=== PATIENT | female | born 1960 | race African-American/Black ===

== ENCOUNTER 2017-02-17 14:11 | Outpatient (CLI) | payer OTHER ==
--- NOTE | 2017-02-17 16:06 | History and Physical Report ---
History of Present Illness Date of examination: 02/17/17 Chief complaint: lt. breast lesion Medications and Allergies Allergies Allergy/AdvReac Type Severity Reaction Status Date / Time Iodinated Contrast Media - Allergy Rash Verified 08/10/16 10:32 IV Dye Penicillins Allergy Rash Verified 08/10/16 10:32 Home Medications Medication Instructions Recorded Confirmed Last Taken Type Dicyclomine [Bentyl] 10 mg PO QID 08/10/16 08/10/16 Unknown History Insulin Aspart Prot/Aspart 0 units SQ BID 08/10/16 08/10/16 Unknown History [Novolog Mix 70/30] Insulin Degludec [Tresiba 16 unit SQ QHS 08/10/16 08/10/16 Unknown History Flextouch U-100] Lipase/Protease/Amylase [Junito Robbins 1 each PO QDAY 08/10/16 08/10/16 Unknown History 12,000 Units] Simvastatin [Zocor TAB] 40 mg PO QHS 08/10/16 08/10/16 Unknown History traMADol [Ultram 50 MG tab] 50 mg PO Q6HR PRN #14 tablet 08/10/16 Unknown Rx
--- NOTE | 2017-02-17 16:08 | Procedure Note ---
Date of procedure: 02/17/17 Pre-op diagnosis: lt. breast lesion Post-op diagnosis: same Procedure: u/s guided bx Findings: solid tissue Anesthesia: local Surgeon: VASU SOTO Estimated blood loss: none Pathology: list (lt breast tissue) Specimen disposition: to lab Condition: stable Disposition: same day
--- NOTE | 2017-02-17 16:13 | Ultrasound Report ---
Ultrasound guided left breast biopsy, marker placement, left mammogram: Patient presents with outside disc demonstrating irregular nodule in the inferomedial left breast and ultrasound correlation. Imaging demonstrates the same ultrasound findings which appears to represent an elongated being taller than wide hypoechoic nodule. The skin was cleansed and 1% lidocaine used for local anesthesia. A 13-gauge guide was introduced through which a 14-gauge disposable Bard biopsy spring-loaded gun was utilized for sampling. Multiple samples obtained under ultrasound guidance. A marker was left in place and ultrasound guidance. The area was bandaged. A 2 view followup mammogram confirmed positioning of the clip corresponding to the nodular area of concern. It is of note that on our mammogram the suspicious area is somewhat less irregular and discrete than on the outside images. The patient was given followup instructions and discharged without complication.
== END 2017-02-17 14:12 | disposition home or self-care (01) ==
LOC: US 14:11
PROVIDERS: ATTEND Surgery
DX: N63 Unspecified lump in breast (principal)
CPT/HCPCS: 19083; 88305; G0206; 88361

== ENCOUNTER 2017-03-31 07:04 | Day surgery (SDC) | payer OTHER ==
[~2017-03-31 07:04] MED LIST: CLEOCIN 900 MG/50 mL 900 MG/50 ML BAG IV SCH
[2017-03-31] MEDS ORDERED: ZOFRAN IV PRN (07:57)
[2017-03-31] MEDS ORDERED: PEPCID PO NR (08:00)
[2017-03-31] MEDS ORDERED: VERSED IV NR (08:00)
[2017-03-31] MEDS ORDERED: NACL 0.9% 1000 ML 1,000 ML IV SCH (08:00)
[2017-03-31] MEDS ORDERED: XYLOCAINE 1% 20 mL ONE ×2 (08:09→08:37)
--- NOTE | 2017-03-31 08:11 | Anesthesia Day of Surgery ---
Anesthesia Day of Surgery - Day of Surgery Patient Examined: Yes Patient H&P Reviewed: Yes Patient is NPO: Yes
--- NOTE | 2017-03-31 08:11 | Anesthesia Consultation ---
Anesthesia Consult and Med Hx Date of service: 03/31/17 - Airway Anesthetic Teeth Evaluation: Good, Crowns ROM Head & Neck: Adequate Mental/Hyoid Distance: Adequate Mallampati Class: Class II Intubation Access Assessment: Probably Good - Pulmonary Exam CTA: Yes - Cardiac Exam Cardiac Exam: RRR - Pre-Operative Health Status ASA Pre-Surgery Classification: ASA2 Proposed Anesthetic Plan: General - Pulmonary Hx Smoking: Yes (CIGARETTES 5 CIGS PD X 18 YRS, QUIT IN 1999) Hx Asthma: No Hx Sleep Apnea: No - Cardiovascular System Hx Hypertension: No Hx Coronary Artery Disease: No - Central Nervous System Hx Seizures: No CVA: No Hx Psychiatric Problems: No - Endocrine Hx Liver Disease: Yes (WHIPPLE SURGERY, BILIARY DISEASE) Hx Non-Insulin Dependent Diabetes: No - Other Systems Hx Cancer: Yes (LEFT, DX: 01/2017) Hx Obesity: No
[2017-03-31] MEDS ORDERED: NACL P/F VIAL (10 ML) 10 ML ONE (08:37)
[2017-03-31] MEDS ORDERED: MARCAINE 0.25% INFILTRATI ONE ×2 (08:37→11:10)
[2017-03-31] MEDS ORDERED: METHYLENE BLUE ONE ×2 (08:38→10:52)
--- NOTE | 2017-03-31 08:44 | Mammography Report ---
Needle localization, left breast: The patient presents with a marker in the retroareolar region. A medial approach was utilized using grid mammography. 1% lidocaine used for local anesthesia. A 3 cm Cast needle introduced adjacent to the marker confirm with mammography. A wire was left in place with removal of the needle. Confirmation with mammography. No complication encountered.
--- NOTE | 2017-03-31 08:46 | Procedure Note ---
Date of procedure: 03/31/17 Pre-op diagnosis: breast lesion Post-op diagnosis: same Procedure: needle loc Findings: n/a Anesthesia: local Surgeon: VASU SOTO Estimated blood loss: none Pathology: none Condition: stable (surgery)
[2017-03-31] MEDS ORDERED: NACL BACTERIOSTATIC INFILTRATI ONE (08:47)
[2017-03-31] MEDS ORDERED: DILAUDID ONE (09:26)
[2017-03-31] MEDS ORDERED: DIPRIVAN 10 MG/ML IV ONE (09:26)
[2017-03-31] MEDS ORDERED: XYLOCAINE MPF 2% ONE (09:26)
[2017-03-31] MEDS ORDERED: DECADRON ONE (10:40)
[2017-03-31] MEDS ORDERED: ZOFRAN ONE (10:49)
[2017-03-31] MEDS ORDERED: ADRENALIN ONE (10:51)
[2017-03-31] MEDS ORDERED: ePHEDrine SULFATE ONE (10:51)
[2017-03-31] MEDS ORDERED: METHYLENE BLUE IV ONE (11:10)
[2017-03-31] MEDS ORDERED: NACL 0.9% IR ONE (11:10)
[2017-03-31] MEDS ORDERED: NACL P/F VIAL (10 ML) IV ONE (11:10)
[2017-03-31] MEDS ORDERED: XYLOCAINE 1% 20 mL INFILTRATI ONE (11:10)
--- NOTE | 2017-03-31 12:16 | Mammography Report ---
Operative specimen mammogram: A single tissue specimen is submitted that includes the localizing wire and the targeted clip.
--- NOTE | 2017-03-31 12:53 | Discharge Summary ---
Short Stay Discharge Plan Activity: no restrictions Diet: regular Wound: open to air, other (use ice pack off and on today; were bra for comfort AT all times) Follow up with: EUN ALMANZA MD [Primary Care Provider] - 7 Days TONJA LOZOYA MD [Staff Physician] - 7 Days Prescriptions: oxyCODONE /ACETAMINOPHEN [Percocet 5/325] 1 - 2 tab PO Q6HR PRN #40 tablet PRN Reason: Pain Promethazine [Phenergan TAB] 25 mg PO Q6HR PRN #10 tab PRN Reason: Nausea
--- NOTE | 2017-03-31 12:57 | Post Operative Note ---
Pre-op diagnosis: left breast cancer at 7:00, zone a Post-op diagnosis: same Findings: Four sentinel nodes removed-1 of the lymph nodes with micrometastases Procedure: Injection of radioisotope and blue dye left retroareolar breast Left axillary sentinel node biopsy Left partial mastectomy with needle localization Closure of wound with BioSorb low-profile clip marker with adjacent tissue transfer of 30 cm Anesthesia: GETA Surgeon: TONJA LOZOYA Estimated blood loss: minimal Pathology: list (Caroleen nodes 3; left partial mastectomy specimen) Specimen disposition: to lab Condition: stable Disposition: PACU
[2017-03-31] MEDS: DILAUDID IV PRN ×2 (13:07→13:30)
[2017-03-31 13:49] VITALS: BP 138/60
--- NOTE | 2017-03-31 15:09 | Post Anesthesia Evaluation ---
- Post Anesthesia Evaluation Patient Participated: Yes Airway Patent: Yes Stable Respiratory Function: Yes Nausea/Vomiting: No Temp > 96.8F: Yes Pain Manageable: Yes Adequeate Hydration: Yes Anesthesia Complications: No Block Receding Appropriately: Not Applicable Patient on Ventilator: No
--- NOTE | 2017-03-31 18:38 | Operative Report ---
PREOPERATIVE DIAGNOSIS: Left breast cancer at 7 o'clock zone, 0.7 cm. POSTOPERATIVE DIAGNOSIS: Left breast cancer at 7 o'clock zone, 0.7 cm. PROCEDURE: 1. Injection of radioisotope and blue dye, left retroareolar breast. 2. Left axillary sentinel node biopsy. 3. Left partial mastectomy with needle localization. 4. Closure wound with BioZorb, low profile 3 x 3 cm marker with adjacent tissue transfer of 30 cm2. TYPE OF ANESTHESIA: General. SURGEON: Suly Reno MD MILLINER HELPER: None. ESTIMATED BLOOD LOSS: Minimal. PATHOLOGY: [place] nodes x3 and left partial mastectomy specimen. CONDITION: Stable. DISPOSITION: PACU. FINDINGS: The patient was noted to have 3 sentinel nodes that were removed, one of the sentinel nodes had 2 lymph nodes in it, one of the lymph nodes had micrometastases, but the other lymph nodes were all negative. INDICATIONS: This is a 56-year-old woman who was noted to have a small left breast nodule in the medial lower quadrant. She had a core biopsy that showed this to be infiltrating cancer. The patient had opted for breast conservation surgery. DESCRIPTION OF PROCEDURE: The patient underwent needle localization by the radiologist and the guidewire was located at about 7 o'clock position, zone A-B. In the preoperative holding, the left breast tissue around the nipple areolar complex was prepped with alcohol and then the radioisotope was then injected in the subareolar tissue in the 4 quadrants and massaged into the tissue. The patient was then brought to the operating room and laid supine on the operating table. After adequate general endotracheal anesthesia was obtained, a left axillary roll was placed and the left arm was placed out on the armboard with appropriate padding. At this point, 2 mL of methylene blue mixed with 3 mL of saline was injected in the subareolar left breast in the 4 quadrants and massaged into the tissue. At this point, the left breast and axilla were prepped and draped in the usual fashion. Next, injection site counts were taken using a Neoprobe device and these were in the range of 37,000 counts were taken in the axilla and at the site of the highest count, a small incision was made. Dissection was carried down and the axillary fat pad was entered. Initially, a somewhat firm feeling and faintly blue lymph node was identified. It was isolated using the Harmonic scalpel device and sent to pathology as sentinel node. #1 Touch prep of this lymph node showed there were two lymph nodes in it with 1 containing micrometastases. Two additional sentinel nodes were identified and removed and sent to pathology and the touch prep of these were negative as the patient met the C 11 criteria with the being postmenopausal less than a 2 cm tumor in the ER positive, I chose not to do a full lymph node dissection. At this point, no further blue-stained lymph nodes are elevated counts were noted in the axilla. The axillary wound was irrigated and subcutaneous tissue was reapproximated using 3-0 Vicryl and skin was reapproximated using 4-0 Monocryl in running subcuticular fashion. Next, attention was then turned to doing her partial mastectomy as the cancer by ultrasonographic and MRI, criteria was listed about 2 cm from the nipple and the guidewire was located about 0.5 cm from the areolar edge. I chose to make a circumareolar incision as centered at 7 o'clock. The guidewire was brought into the field. Next, dissection was carried out along the path of the guidewire and the tip and the surrounding tissue was excised. It should be noted that the tumor was fairly superficial and closer to the skin ____ and the guidewire was floating in the tissue and basically had come out, but stayed on the superior aspect of the tissue. Once the specimen was removed, it was marked with sutures for orientation and specimen mammogram showed removal of that clip that was targeted. At this point, hemostasis was ascertained in the wound. The wound was irrigated. The defect was measured as 5 x 6 cm, which was 30 square cm. I chose to use a low profile BioZorb clip that was round and 3 x 3 cm. This was secured and the subcutaneous tissue was brought around the clip to secure the clip using 2-0 PDS in interrupted fashion. Once the clip was secured, the subcutaneous tissue was reapproximated using 3-0 Vicryl and the skin was reapproximated using 4-0 Monocryl in running subcuticular fashion. Both incisions were dressed with skin glue. The patient tolerated the procedure. There were no immediate complications. All counts reported as correct. JOB# [id number] SS/NTS
== END 2017-03-31 14:20 | disposition home or self-care (01) ==
LOC: OR 07:04
PROVIDERS: ATTEND Surgery
DX: C50.312 Malignant neoplasm of lower-inner quadrant of left female breast (principal); M19.90 Unspecified osteoarthritis, unspecified site; E11.9 Type 2 diabetes mellitus without complications; Z90.49 Acquired absence of other specified parts of digestive tract; Z98.890 Other specified postprocedural states
CPT/HCPCS: 19281; 19301; 38525; 38792; 76098; 78800; 82962; 88305; 88307; 88331; 88332; 88333; 88334; 88341; 88342; A9541; J1100; J1170; J2250; J2405; J2704; J7030; Q9968; J0171

== ENCOUNTER 2017-04-20 13:23 | Outpatient (CLI) | payer OTHER ==
--- NOTE | 2017-04-25 08:34 | PET Report ---
PET/CT:04/20/17 13:23:00 CLINICAL: Breast cancer staging. RADIOPHARMACEUTICAL: 15.67mCi F18-FDG. COMPARISON: MRI Breast Bilateral 03/13/17 TECHNIQUE- Following intravenous injection of F-18 FDG and an approximately 60 minute uptake period, CT and PET images from the mid skull to the upper thighs were acquired with the patient in the fasted state. No contrast was administered. The CT protocol used for this PET CT study is designed for attenuation correction and anatomic localization of PET abnormalities. This core feeder CT is not desired to produce and cannot replace, tjcey-hq-jdn-art diagnostic CT scans with specific imaging protocols for different body parts and indications. Plasma glucose at the time of this test: 134g/dl. The standardized uptake values (SUV) are normalized to patient body weight and indicate the highest activity concentration (SUV max) in a given disease site. FINDINGS: Brain--Physiologic FDG uptake in the visualized regions of the brain. Neck--Physiologic FDG uptake . Chest--Physiologic FDG uptake in mediastinal blood pool and myocardium. Lungs--No abnormal uptake. No pulmonary nodule or mass. Pleura/pericardium--No abnormal uptake. Thoracic nodes--No abnormal uptake. Hepatobiliary--an irregular hypodense left hepatic mass measures 5.3 x 4.4 cm. It has a more hypodense FDG avid center measuring 2.1 x 1.7 cm with SUV 5.3. Liver background SUV mean, as a reference for comparing FDG studies, is 3.1 . Benign pneumobilia status post choledocho-jejunostomy. Spleen--No abnormal uptake. Pancreas--No abnormal uptake. The head and proximal body are atrophic and the tail is absent. Postsurgical changes. Adrenal Glands--No abnormal uptake. Kidneys/Ureters/Bladder--No abnormal uptake. Abdominopelvic Nodes--No abnormal uptake. Bowel/Peritoneum/Mesentery--No abnormal uptake. Pelvic organs--No abnormal uptake. Bones/Soft Tissues--No abnormal uptake. No suspicious bone lesion. Other findings: Surgical clips in the left breast and a left breast seroma. No abnormal uptake in the breasts. IMPRESSION- 1. Hepatic metastasis with a single 5.3 x 4.4 cm predominantly non-FDG mass and a 2.1 x 1.7 cm FDG avid central component.2. Status post pancreatectomy with choledochojejunostomy. 3. Benign pneumobilia. 4. No evidence of pulmonary, harris or skeletal metastasis.
== END 2017-04-20 13:24 | disposition home or self-care (01) ==
LOC: PET 13:23
PROVIDERS: ATTEND Internal Medicine Hematology & Oncology
DX: C78.7 Secondary malignant neoplasm of liver and intrahepatic bile duct (principal); C50.412 Malignant neoplasm of upper-outer quadrant of left female breast; K76.89 Other specified diseases of liver; K86.89 Other specified diseases of pancreas; N64.89 Other specified disorders of breast; K83.8 Other specified diseases of biliary tract; Z90.410 Acquired total absence of pancreas; Z93.4 Other artificial openings of gastrointestinal tract status; Z98.890 Other specified postprocedural states
CPT/HCPCS: 78815; 82962; A9552

== ENCOUNTER 2017-04-25 07:02 | Day surgery (SDC) | payer OTHER ==
[~2017-04-25 07:02] MED LIST changes: -CLEOCIN 900 MG/50 mL 900 MG/50 ML BAG IV SCH; +VANCOMYCIN/NS 1 GM/250 ML 1 GM/250 ML BAG IV NR
[2017-04-25] MEDS ORDERED: DECADRON ONE (07:03)
[2017-04-25] MEDS ORDERED: ZOFRAN ONE (07:03)
[2017-04-25] MEDS ORDERED: SUBLIMAZE ONE (07:03)
[2017-04-25] MEDS ORDERED: XYLOCAINE MPF 2% ONE (07:03)
[2017-04-25] MEDS ORDERED: DIPRIVAN 10 MG/ML IV ONE (07:04)
[2017-04-25] MEDS ORDERED: NACL BACTERIOSTATIC INFILTRATI ONE (07:56)
[2017-04-25] MEDS ORDERED: VERSED IV NR (08:00)
[2017-04-25] MEDS ORDERED: NACL 0.9% 1000 ML 1,000 ML IV SCH (08:00)
[2017-04-25] MEDS ORDERED: MARCAINE 0.25% INFILTRATI ONE ×2 (08:11→09:51)
[2017-04-25] MEDS ORDERED: NACL 0.9% 100 ML ONE (08:11)
[2017-04-25] MEDS ORDERED: XYLOCAINE 1% 20 mL ONE (08:11)
[2017-04-25] MEDS ORDERED: HEPARIN 10,000 UNITS/10 ML ONE (08:11)
--- NOTE | 2017-04-25 08:15 | Anesthesia Consultation ---
Anesthesia Consult and Med Hx Date of service: 04/25/17 - Airway Anesthetic Teeth Evaluation: Good ROM Head & Neck: Adequate Mental/Hyoid Distance: Adequate Mallampati Class: Class II Intubation Access Assessment: Probably Good - Pulmonary Exam CTA: Yes - Cardiac Exam Cardiac Exam: RRR - Pre-Operative Health Status ASA Pre-Surgery Classification: ASA3 Proposed Anesthetic Plan: General - Pulmonary Hx Smoking: Yes (CIGARETTES 5 CIGS PD X 18 YRS, QUIT IN 1999) Hx Sleep Apnea: No - Central Nervous System Hx Psychiatric Problems: No - Endocrine Hx Insulin Dependent Diabetes: Yes Hx Non-Insulin Dependent Diabetes: No - Other Systems Hx Cancer: Yes (LEFT, DX: 01/2017) - Additional Comments Anesthesia Medical History Comments: JOSE crow in 2014
--- NOTE | 2017-04-25 08:16 | Anesthesia Day of Surgery ---
Anesthesia Day of Surgery - Day of Surgery Patient Examined: Yes Patient H&P Reviewed: Yes Patient is NPO: Yes
[2017-04-25] MEDS ORDERED: PEPCID PO NR (08:30)
[2017-04-25] MEDS ORDERED: XYLOCAINE 2%/ EPI 1:200,000 INFILTRATI ONE (08:52)
[2017-04-25] MEDS ORDERED: XYLOCAINE 1%/ EPI 1:100,000 INFILTRATI ONE (08:53)
[2017-04-25] MEDS ORDERED: ZOFRAN IV PRN (09:00)
[2017-04-25] MEDS ORDERED: ePHEDrine SULFATE ONE (09:42)
[2017-04-25] MEDS ORDERED: XYLOCAINE 1% 20 mL INFILTRATI ONE (09:51)
[2017-04-25] MEDS ORDERED: NACL 0.9% IR ONE (09:51)
[2017-04-25] MEDS ORDERED: HEPARIN 10,000 UNITS/10 ML IV ONE (09:51)
[2017-04-25] MEDS ORDERED: NACL 0.9% IV ONE (09:52)
--- NOTE | 2017-04-25 10:43 | Fluoroscopy Report ---
Findings: History of left breast cancer is given. A single AP fluoroscopic spot shot of the upper chest was obtained after placement of a right IJ Exerda-y-Csnz. The distal tip of the Pwlzgh-s-Oxmd terminates in the mid right atrium. There is no obvious pneumothorax on this limited image. Impression: Right Qtgpli-n-Ffwj placement as described.
--- NOTE | 2017-04-25 11:21 | Post Operative Note ---
Date of procedure: 04/25/17 Pre-op diagnosis: left breast cancer; venous insufficiency Post-op diagnosis: same Findings: Tip of catheter at the area of the SVC by fluoroscopy Procedure: 1 right internal jugular vascular access port placement with ultrasonographic and fluoroscopic guidance 2 left axillary lymph node dissection Anesthesia: ALMA Surgeon: TONJA LOZOYA Single Needle Tufting Machine Operator: ALEN DE ANDA Estimated blood loss: minimal Pathology: list (left axillary node dissection) Specimen disposition: to lab Condition: stable Disposition: PACU
--- NOTE | 2017-04-25 11:25 | Discharge Summary ---
Short Stay Discharge Plan Activity: no restrictions Diet: regular Wound: open to air, other (empty and record drain output daily and as needed; ice pack to wounds off and on today; may shower and wash incisions and 2 days) Follow up with: EUN ALMANZA MD [Primary Care Provider] - 7 Days TONJA LOZOYA MD [Staff Physician] - 7 Days Prescriptions: oxyCODONE /ACETAMINOPHEN [Percocet 5/325] 1 - 2 tab PO Q6HR PRN #40 tablet PRN Reason: Pain Promethazine [Phenergan TAB] 25 mg PO Q6HR PRN #10 tab PRN Reason: Nausea
[2017-04-25] MEDS: DILAUDID IV PRN ×2 (12:10→12:20)
[2017-04-25] MEDS ORDERED: REGLAN IV ONE (13:12)
[2017-04-25 16:03] VITALS: BP 149/63
--- NOTE | 2017-04-27 16:44 | Operative Report ---
PREOPERATIVE DIAGNOSES: 1. Left breast cancer with positive axillary sentinel node. 2. Venous insufficiency. POSTOPERATIVE DIAGNOSIS: 1. Left breast cancer with positive axillary sentinel node. 2. Venous insufficiency. PROCEDURE: 1. Right internal jugular vascular access port placement with ultrasound graphic and fluoroscopic guidance. 2. Left axillary lymph node dissection. TYPE OF ANESTHESIA: General. SURGEON: Suly Reno MD SURVEY RODMAN: Dr. Desean Livingston. EBL: Minimal. PATHOLOGY: Left axillary fat ____/node dissection to the left. INDICATIONS: This is a 56-year-old woman who was recently diagnosed with left breast cancer. She had undergone a left partial mastectomy with sentinel node biopsy. The final pathology in the sentinel showed one lymph node with gross metastatic disease and actually lymph node was greater than the primary tumor. She warranted an axillary lymph node dissection. She also required IV access for adjuvant chemotherapy. DESCRIPTION OF PROCEDURE: The patient was brought to the operating room, laid supine on the table. After adequate general anesthesia was obtained, the right neck and chest wall were prepped and draped in the usual fashion. The patient was placed in Trendelenburg position. Next, a 6.6 [place]kin[place] vortex kit was utilized to support. Initially, an ultrasonograph of the right neck was performed using the [facility] device with a sterile probe cover, the right internal jugular vein was identified. A small skin incision was made in the neck using the 11 blade. Next, a Seldinger needle was inserted into the right internal jugular vein under ultrasonographic guidance. The guidewire was then inserted. At this point, a counterincision was made on the right anterior chest wall and a pocket for the zone was created. At this point, the catheter was tunneled from the neck to the chest wall. The distal end was trimmed to an adequate length, the catheter was then secured to the dome using the locking device. The dome was then secured to the pocket using 3-0 Prolene suture. Once this was done, attention was turned to the guidewire. Fluoroscopy confirmed the placement of the guidewire into the right side of the heart. Next, a dilator and introducer sheaths were advanced over the guidewire under fluoroscopic guidance. Next, the guidewire and dilator removed and the catheter was placed into the sheath. The sheath was then peeled away. There was good blood return and flushed through the port using the ____ needle. Fluoroscopy confirmed that the tip of the catheter to be at the area of the SVC. At this point, the port was flushed with 900 units, which was 0.9 mL of 1000 units per mL of heparin. We turned our attention to closing the wound. The subcutaneous tissue to shape the side of the pocket was closed using 3-0 Vicryl and the skin at the neck and then the chest wall was closed using 4-0 Monocryl in running subcuticular fashion. The wounds were dressed with skin glue. The patient tolerated this part of the procedure without any complications. At this point, attention was turned to doing the left axillary dissection. The patient was repositioned with the left axillary roll and left arm on the wedge armboard with the left axilla was then prepped and draped in the usual fashion. The previous incision was incised and dissection was carried down and the axillary fat pad was entered. The axillary vein and the thoracodorsal vessels were identified. The fat these structures were swept inferiorly and then divided from the breast tissue. The fat above the structures were magana and then divided from the breast tissue. The fact was sent to pathology. Hemostasis was ascertained. A #19 Jamey drain was placed through a separate stab incision and secured using a 2-0 silk suture to the skin. Next, the wound was irrigated. The subcutaneous tissue was reapproximated using 3-0 Vicryl and skin was reapproximated using 4-0 Monocryl in running subcuticular fashion. The patient tolerated the procedure. There were no immediate complications. All counts reported as correct. JOB# [id number] KARINA/LAW
== END 2017-04-25 14:42 | disposition home or self-care (01) ==
LOC: OR 07:02
PROVIDERS: ATTEND Surgery
DX: C50.912 Malignant neoplasm of unspecified site of left female breast (principal); C77.3 Secondary and unspecified malignant neoplasm of axilla and upper limb lymph nodes; M19.90 Unspecified osteoarthritis, unspecified site; E11.9 Type 2 diabetes mellitus without complications; Z90.49 Acquired absence of other specified parts of digestive tract; Z98.890 Other specified postprocedural states; Z90.12 Acquired absence of left breast and nipple; Z79.4 Long term (current) use of insulin; Z79.899 Other long term (current) drug therapy; Z88.0 Allergy status to penicillin; Z87.891 Personal history of nicotine dependence
CPT/HCPCS: 36561; 38525; 77001; 82962; 88307; C1788; J1170; J1644; J2250; J2405; J2704; J2765; J3010; J3370; J7030; J1100; J1815